=== PATIENT | female | born 2000 | race Caucasian/White ===

== ENCOUNTER 2018-09-14 04:08 | Emergency (ER) | payer OTHER ==
[~2018-09-14] VITALS: Ht 149.9 cm; Wt 59.0 kg
[2018-09-14 04:15] VITALS: BP 113/79
--- NOTE | 2018-09-14 04:20 | NUR ---
PT AMBULATED TO BED 8.
--- NOTE | 2018-09-14 04:25 | NUR ---
17 YO F BIB SELF AND MOM C/O SORE THROAT X 5 DAYS AND HOARSE VOICE X 2 DAYS. PT STATES SHE SAW HER PCP YESTERDAY AND RECEIVED MOTRIN AND CLARITIN AND HAS NOT HAD RELIEF OF S/SX. PT DENIES FEVER, CHILLS, NVD, SOB. PT REPORTS HAVING A MILD, DRY COUGH. -- THROAT IS PINK. -- BREATHING EVEN, UNLABORED. SKIN PINK DRY WARM. -- PT APPEARS CALM. IS ALERT, COOPERATIVE, BEHAVIOR APPROPRIATE. PMH-- DENIES RX-- MOTRIN AT 0300, CLARITIN AT 1900
--- NOTE | 2018-09-14 04:35 | NUR ---
THROAT SWAB COLLECTED.
[2018-09-14 05:40] VITALS: BP 112/81
== END 2018-09-14 05:40 | disposition home or self-care (01) ==
LOC: MED 04:08
DX: J02.9 Acute pharyngitis, unspecified (principal)
CPT/HCPCS: 87081; 99283

== ENCOUNTER 2019-10-28 09:13 | Emergency (ER) | payer OTHER ==
[~2019-10-28] VITALS: Ht 152.4 cm; Wt 54.4 kg
[2019-10-28 09:15] VITALS: BP 128/75
--- NOTE | 2019-10-28 09:20 | NUR ---
Patient ambulated to bed 7.
--- NOTE | 2019-10-28 09:25 | NUR ---
19 Y/O FEMALE FROM HOME C/O LT LABIA PAIN X 3 DAYS. PT STATES "HARD BUMP" ON LT LABIA AND THINKS ITS A POSSIBLE BARTHOLIN'S CYST. DENIES DRAINAGE. HAS TRIED SITZ BATH WITH NO RELIEF. 8/10 SORE PAIN. TOOK TYLENOL AROUND 0400 WITH NO PAIN RELIEF. SKIN WARM AND DRY TO THE TOUCH. HOB ELEVATED, POSITIONED FOR COMFORT. MEDHX: DENIES ALLERGIES: NKA
--- NOTE | 2019-10-28 09:38 | NUR ---
DR DAVIS AT BEDSIDE EXAMINING PT
[2019-10-28] MEDS ORDERED: LIDOCAINE 2% 1000 MG/50 ML VIAL INJ ONE ×2 (10:07→10:10)
--- NOTE | 2019-10-28 10:16 | NUR ---
Female Principal Accounts Clerk accompanied female patient for DRAINAGE OF BARTHOLIN'S CYST
[2019-10-28 10:21] VITALS: BP 122/72
--- NOTE | 2019-10-28 10:21 | NUR ---
Patient discharged with v/s stable. Written and verbal after care instructions given and explained. Patient alert, oriented and verbalized understanding of instructions. Ambulatory with steady gait. All questions addressed prior to discharge. ID band removed. Patient advised to follow up with PMD. Rx of MOTRIN,KEFLEX,BACTRIM given. Patient educated on indication of medication including possible reaction and side effects. Opportunity to ask questions provided and answered.
== END 2019-10-28 10:21 | disposition home or self-care (01) ==
LOC: MED 09:13
DX: N75.1 Abscess of Bartholin's gland (principal)
CPT/HCPCS: 56420; 99284; J2001; 99283

== ENCOUNTER 2019-11-08 12:19 | Observation (INO) | payer OTHER ==
[~2019-11-08] VITALS: Ht 152.4 cm; Wt 49.9 kg
[2019-11-08 12:27] VITALS: BP 114/73
--- NOTE | 2019-11-08 12:35 | NUR ---
19 Y/O FEMALE C/O DIFFUSE RASH ON BILAT UPPER/LOWER EXTR THAT BEGAN A FEW WEEKS AGO S/P TAKING A TWO WEEK COURSE OF ANTIBIOTICS. PT STATES SHE HAS MILD ECZEMA ALSO. PT DENIES ANY SOB/CP/COUGH. SKIN IS INTACT. RASH SPANS ACROSS CHEST/BACK/UPPER/LOWER BILAT EXTREMITIES. NO PMH NKA
[2019-11-08] MEDS ORDERED: predniSONE 20 MG TAB PO ONE (12:55)
[2019-11-08 13:21] LABS: BASOPHILS % (AUTO) 0.5 % (0.0-2.0); EOSINOPHILS # (AUTO) 0.2 K/uL (0-0.4); EOSINOPHILS % (AUTO) 4.6 % (0.0-4.0); HEMATOCRIT 37.6 % (36-48); HEMOGLOBIN 12.5 g/dL (12.0-16.0); LYMPHOCYTES # (AUTO) 1.4 K/uL (2.5-16.5); LYMPHOCYTES % (AUTO) 35.3 % (20.5-51.1); MEAN CORPUSCULAR HEMOGLOBIN 32 pg (27-31); MEAN CORPUSCULAR HGB CONC 33 g/dL (33-37); MEAN CORPUSCULAR VOLUME 95.8 fL (80-94); MONOCYTES # (AUTO) 0.2 K/uL (0.8-1.0); NEUTROPHILS # (AUTO) 2.2 K/uL (1.8-7.7); NEUTROPHILS % (AUTO) 54.6 % (42.2-75.2); PLATELET COUNT (AUTO) 249 K/uL (140-450); RED BLOOD CELL COUNT(AUTO) 3.93 MIL/uL (4.20-5.40); RED CELL DISTRIBUTION WIDTH 12.2 % (11.6-13.7)
[2019-11-08 13:57] LABS: ALBUMIN 3.4 g/dL (3.4-5.0); ANION GAP 13.5 (8-16); CARBON DIOXIDE 28.2 mmol/L (21-32); CREATININE 0.8 mg/dL (0.6-1.3); POTASSIUM 4.7 mmol/L (3.5-5.1); TOTAL BILIRUBIN 0.1 mg/dL (0.0-1.0)
[2019-11-08 14:02] LABS: PROTHROMBIN TIME 10.2 secs (10.8-13.4)
[2019-11-08] MEDS ORDERED: NACL 0.9% 1,500 ML IV ONE (15:05)
--- NOTE | 2019-11-08 15:06 | NUR ---
PT IS RESTING IN BED. STATES SHE FEELS A LITTLE WEAK, DANK KIRBY NOTIFIED
--- NOTE | 2019-11-08 16:02 | NUR ---
PT IS RESTING IN BED. AWAKE AND ALERT. NELSON CRACKERS GIVEN TO PATIENT. DENIES ANY PAIN AT THIS TIME. VSS
--- NOTE | 2019-11-08 17:20 | NUR ---
DANK FRANCO AT BEDSIDE WITH PATIENT
--- NOTE | 2019-11-08 17:22 | NUR ---
TURKEY SANDWICH GIVEN TO PT WTH SOME JUICE. VSS. ALL NEEDS ARE MET AT THIS TIME
[2019-11-08] MEDS ORDERED: ONDANSETRON 4 MG/2 ML VIAL IVP PRN (17:50)
[2019-11-08] MEDS ORDERED: ACETAMINOPHEN 325 MG TAB PO PRN (17:50)
[2019-11-08] MEDS ORDERED: MORPHINE SULFATE 4 MG/ML SYR IVP PRN (17:50)
[2019-11-08] MEDS ORDERED: HYDROcodone/APAP 5/325 MG 1 TAB TAB PO PRN (17:50)
[2019-11-08] MEDS: NACL 0.9% 1,000 ML IV SCH (18:00)
--- NOTE | 2019-11-08 19:15 | NUR ---
RECEIVED REPORT FROM ED NURSE. PT ARRIVED ON A GURNEY AND WAS TRANSFERRED TO A BED IN 104. PT IS AWAKE AND ALERT. SHE IS A&O X 4. PT IS ON RA AND BREATHING IS EVEN AND UNLABORED. SKIN IS WARM, DRY, AND INTACT. IV IS IN THE LEFT AC 20 GAUGE RUNNING NS AT 80 ML PER HOUR PER DOCTOR ORDER. PT IS SINUS RHYTHM ON TELE MONITORING. SMALL FADING RASH ON HER ARMS BILATERALLY. BED IS IN THE LOWEST POSITION AND CALL LIGHT IS WITHIN REACH. PLAN OF CARE WAS DISCUSSED.
--- NOTE | 2019-11-08 19:22 | NUR ---
Patient will be [facility]. Admited to TELE. Will go to room 104B Belongings list completed. Report to JAD FALL.
[2019-11-08 20:00] VITALS: BP 109/72
--- NOTE | 2019-11-08 20:00 | NUR ---
PHYSICAL EXAM WAS COMPLETED. PT IS A&O X 4. LUNG SOUNDS ARE CLEAR BILATERALLY. NO COMPLAINTS OF PAIN OR ITCHING. PT IS SINUS TACHYCARDIA ON THE TELE MONITOR. SKIN IS INTACT. ASKED PT ABOUT BARTHOLIN CYST, PT STATED IT WAS LOCATED ON THE OUTSIDE OF VAGINA. PT DID NOT WANT TO SHOW CYST AT THIS TIME. WILL CONTINUE TO MONITOR PT.
[2019-11-08] MEDS ORDERED: WATER STERILE 10 ML MC ONE (20:10)
[2019-11-08] MEDS ORDERED: methylPREDNISolone SS 40 MG/ML VIAL ONE (20:10)
[2019-11-08] MEDS: methylPREDNISolone SS 60 MG in WATER STERILE 1 ML IV SCH (20:19)
--- NOTE | 2019-11-08 20:25 | NUR ---
INFORMED DR. COLLADO VIA TELEPHONE OF THE PT'S HR READING OF 143. DOCTOR SAID HE WOULD PUT IN AN ORDER FOR LOPRESSOR 5 MG PRN IVP Q 4HR. WILL ADMINISTER SOON VERIFIED AND RECHECK HR. WILL CONTINUE TO MONITOR.
[2019-11-08] MEDS ORDERED: METOPROLOL 5 MG/5 ML VIAL IV PRN (20:40)
--- NOTE | 2019-11-08 20:45 | NUR ---
PT'S HR READING HAS CONSISTENTLY BEEN 100 ON TELE MONITORING FOR TEN MINUTES. PT WILL NO LONGER BE GIVEN PRN MEDICATION FOR HR GREATER THAN 140. WILL CONTINUE TO MONITOR PT.
--- NOTE | 2019-11-08 22:30 | NUR ---
PT IS ASLEEP AND STABLE AT THIS TIME. BREATHING IS UNLABORED AND PT IS ON RA. BED IS IN LOWEST POSITION AND CALL LIGHT IS WITHIN REACH. WILL CONTINUE TO MONITOR.
[2019-11-09] VITALS: BP 94/59
--- NOTE | 2019-11-09 01:44 | NUR ---
PT IS RESTING AND STABLE. NO SIGNS OF DISTRESS. IV IS PATENT AND RUNNING NS AT 80 ML PER HOUR PER DOCTORS ORDER. PT DENIES ANY PAIN OR AGITATION AT THIS TIME.
[2019-11-09 04:00] VITALS: BP 100/64
--- NOTE | 2019-11-09 04:00 | NUR ---
PT IS AWAKE AND ALERT. A&O X 4. NO SIGNS OF DISTRESS. NO COMPLAINTS OF PAIN. RASH IS LESS VISIBLE ON THE ARMS BILATERALLY. NO COMPLAINTS OF ITCHING. PT EXPRESSES FEELING BETTER THAN BEFORE SHE GOT TO THE UNIT AFTER ADMINISTRATION OF THE SOLUMEDROL MEDICATION. WILL CONTINUE TO MONITOR.
[2019-11-09] MEDS ORDERED: methylPREDNISolone SS 40 MG/ML VIAL ONE (04:20)
[2019-11-09] MEDS ORDERED: WATER STERILE 10 ML MC ONE (04:21)
[2019-11-09] MEDS: methylPREDNISolone SS 60 MG in WATER STERILE 1 ML IV SCH (04:28)
[2019-11-09] MEDS: NACL 0.9% 1,000 ML IV SCH (05:55)
--- NOTE | 2019-11-09 06:00 | NUR ---
PT IS SLEEPING IN SEMI FOWLERS POSITION. BREATHING IS UNLABORED AND PT IS ON RA. IV IS PATENT AND RUNNING FLUIDS ORDERED. PT IS STABLE. BED IS IN LOWEST POSITION AND CALL LIGHT IS WITHIN REACH.
--- NOTE | 2019-11-09 07:18 | NUR ---
ENDORSED PT TO DAY SHIFT NURSE. PT IS A&O X 4, SKIN IS INTACT, AND IV FLUIDS ARE RUNNING PER ORDER. PT IS STABLE AT THIS TIME. PLAN OF CARE DISCUSSED.
[2019-11-09 07:19] LABS: HEMATOCRIT 36.6 % (36-48); HEMOGLOBIN 12.4 g/dL (12.0-16.0); LYMPHOCYTES # (AUTO) 1.5 K/uL (2.5-16.5); LYMPHOCYTES % (AUTO) 34.8 % (20.5-51.1); MEAN CORPUSCULAR HEMOGLOBIN 32 pg (27-31); MEAN CORPUSCULAR HGB CONC 34 g/dL (33-37); MEAN CORPUSCULAR VOLUME 95.6 fL (80-94); MONOCYTES # (AUTO) 0.2 K/uL (0.8-1.0); MONOCYTES % (AUTO) 5.6 % (1.7-9.3); NEUTROPHILS # (AUTO) 2.6 K/uL (1.8-7.7); NEUTROPHILS % (AUTO) 59.6 % (42.2-75.2); PLATELET COUNT (AUTO) 289 K/uL (140-450); RED BLOOD CELL COUNT(AUTO) 3.82 MIL/uL (4.20-5.40); RED CELL DISTRIBUTION WIDTH 12.4 % (11.6-13.7); WHITE BLOOD COUNT (AUTO) 4.3 K/uL (4.8-10.8)
--- NOTE | 2019-11-09 07:19 | NUR ---
Received report from pm nurse. Pt resting in bed, respirations even & unlabored in room air. Right arm rash resolved, no c/o itchiness. Left AC 10G IV intact with ongoing NS @ 80ml/h. Call light within reach. Will continue to monitor.
[2019-11-09 07:47] LABS: ALBUMIN 3.4 g/dL (3.4-5.0); ANION GAP 15.4 (8-16); CARBON DIOXIDE 26.5 mmol/L (21-32); CREATININE 0.8 mg/dL (0.6-1.3); MAGNESIUM 2.2 mg/dL (1.8-2.4); POTASSIUM 3.9 mmol/L (3.5-5.1); TOTAL BILIRUBIN 0.2 mg/dL (0.0-1.0)
[2019-11-09 08:00] VITALS: BP 107/74
[2019-11-09] MEDS ORDERED: FAMOTIDINE 20 MG TAB PO SCH (09:00)
--- NOTE | 2019-11-09 09:00 | NUR ---
PATIENT HAS BEEN SCREENED AND CATEGORIZED LOW NUTRITION RISK. PATIENT WILL BE SEEN WITHIN 7 DAYS OF ADMISSION. 11/15/[address]
[2019-11-09 12:00] VITALS: BP 102/58
[2019-11-09] MEDS ORDERED: methylPREDNISolone SS 125 MG/2 ML VIAL IVP SCH (13:00)
[2019-11-09] MEDS ORDERED: DIPH25SG5 PO (14:48)
[2019-11-09] MEDS ORDERED: FAMO20TA13 PO (14:48)
[2019-11-09] MEDS ORDERED: PRED20TA5 PO (14:48)
--- NOTE | 2019-11-09 16:00 | NUR ---
Verbal and written discharge instructions provided to patient. Patient verbalized understanding of discharge plan. Left AC IV discontinued, cannula intact, site without bleeding covered with dry gauze. Per patient, her car is parked at parking lot and she will drive home.
--- NOTE | 2019-11-09 16:15 | NUR ---
Patient ambulated off unit with steady gait, accompanied by staff to front lobby. All belongings with patient upon departure.
== END 2019-11-09 16:15 | disposition home or self-care (01) ==
LOC: MED 12:19 → MTU 18:21
PROVIDERS: ADMIT Hospitalist; ATTEND Hospitalist
DX: T50.905A Adverse effect of unspecified drugs, medicaments and biological substances, initial encounter (principal); R59.1 Generalized enlarged lymph nodes; D72.1 Eosinophilia; Z87.2 Personal history of diseases of the skin and subcutaneous tissue; Z86.2 Personal history of diseases of the blood and blood-forming organs and certain disorders involving the immune mechanism; X58.XXXA Exposure to other specified factors, initial encounter; Y93.89 Activity, other specified; Y92.89 Other specified places as the place of occurrence of the external cause
CPT/HCPCS: 36415; 80053; 83735; 85025; 85610; 85651; 86140; 87081; 96374; 96375; 96376; 99285; G0378; J2405; J2920; J2930; J7030; J7512; Q0163; 96361; 99284

== ENCOUNTER 2021-11-11 16:27 | Emergency (ER) | payer OTHER ==
[~2021-11-11] VITALS: Ht 152.4 cm; Wt 62.1 kg
[~2021-11-11 16:27] MED LIST: DIPH25SG5 PO; FAMO20TA13 PO; PRED20TA5 PO
[2021-11-11 16:48] VITALS: BP 124/73
--- NOTE | 2021-11-11 22:11 | NUR ---
Called first time- no show in lobby or outside.
--- NOTE | 2021-11-11 22:26 | NUR ---
Called second time- no show in lobby or outside.
--- NOTE | 2021-11-11 22:56 | NUR ---
Called thrid time- no show in lobby or outside. Addendum: 11/11/21 at 2303 by MNCARINA Called third time- no show in lobby or outside.
--- NOTE | 2021-11-11 22:56 | NUR ---
PATIENT LEFT WITHOUT BEING SEEN BY DR. Juan. NO FURTHER CARE PROVIDED FOR PATIENT.
[2021-11-12] MEDS ORDERED: LOPE-289 PO (04:11)
[2021-11-12] MEDS ORDERED: ONDA-188 SL (04:11)
[2021-11-12] MEDS ORDERED: CIPR500T4 PO (04:11)
== END 2021-11-11 22:56 | disposition left against medical advice (07) ==
LOC: MED 16:27
DX: R10.9 Unspecified abdominal pain (principal); R11.2 Nausea with vomiting, unspecified; R19.7 Diarrhea, unspecified; Z53.21 Procedure and treatment not carried out due to patient leaving prior to being seen by health care provider

== ENCOUNTER 2021-11-11 23:33 | Emergency (ER) | payer OTHER ==
[~2021-11-11] VITALS: Ht 152.4 cm; Wt 63.5 kg
[2021-11-11 23:50] VITALS: BP 108/64
--- NOTE | 2021-11-12 03:59 | NUR ---
Dr. Juan examining patient.
[2021-11-12] MEDS ORDERED: LOPERAMIDE 2 MG CAP PO ONE (04:00)
[2021-11-12] MEDS ORDERED: ONDANSETRON 4 MG ODT PO ONE (04:00)
[2021-11-12] MEDS ORDERED: CIPR500T4 PO (04:11)
[2021-11-12] MEDS ORDERED: LOPE-289 PO (04:11)
[2021-11-12] MEDS ORDERED: ONDA-188 SL (04:11)
[2021-11-12 04:18] VITALS: BP 114/66
--- NOTE | 2021-11-12 04:18 | NUR ---
Patient discharged with v/s stable. Written and verbal after care instructions given and explained for food poisoning. Patient alert, oriented and verbalized understanding of instructions. Ambulatory with steady gait. All questions addressed prior to discharge. ID band removed. Patient advised to follow up with PMD. Rx of Cipro, Imodium and Zofran given. Patient educated on indication of medication including possible reaction and side effects. Opportunity to ask questions provided and answered.
== END 2021-11-12 04:18 | disposition home or self-care (01) ==
LOC: MED 23:33
DX: R11.2 Nausea with vomiting, unspecified (principal); R19.7 Diarrhea, unspecified; R50.9 Fever, unspecified; Z79.899 Other long term (current) drug therapy
CPT/HCPCS: 81002; 81025; 99283; Q0162